=== PATIENT | female | born 1980 | race Caucasian/White ===

== ENCOUNTER 2017-10-26 13:09 | Day surgery (SDC) | payer OTHER ==
[~2017-10-26] VITALS: Ht 162.6 cm; Wt 69.1 kg
[2017-10-26] MEDS ORDERED: PROBIOTIC1 EAC1 (13:39)
[2017-10-26] MEDS ORDERED: MAGCHL64ER (13:40)
[2017-10-26] MEDS ORDERED: Vitamin D400 UNI1 (13:40)
== END 2017-10-26 16:44 | disposition home or self-care (01) ==
LOC: ORSCSDS 13:09
PROVIDERS: Obstetrics & Gynecology
PROC: 0UDB8ZX Extraction of Endometrium, Via Natural or Artificial Opening Endoscopic, Diagnostic (ICD-10-PCS; principal; 2017-10-26 14:30)
PROC: 0U5B8ZZ Destruction of Endometrium, Via Natural or Artificial Opening Endoscopic (ICD-10-PCS; principal; 2017-10-26 14:30)
DX: N92.1 Excessive and frequent menstruation with irregular cycle (principal)
CPT/HCPCS: 84703; 88305; J0690; J1100; J1885; J2250; J2405; J2765; J3010; J7120

== ENCOUNTER → 2019-06-03 | Outpatient (CLI) | payer OTHER ==
[~2019-06-03] MED LIST: MAGCHL64ER; PROBIOTIC1 EAC1; Vitamin D400 UNI1
== END | disposition home or self-care (01) ==
LOC: LAB SHORT 14:57 → PLD 14:57
DX: D48.5 Neoplasm of uncertain behavior of skin (principal)
CPT/HCPCS: 88305